=== PATIENT | male | born 1965 | race Caucasian/White ===

== ENCOUNTER 2019-05-22 11:01 | Emergency (ER) | payer BC ==
[~2019-05-22] VITALS: Ht 180.3 cm; Wt 99.8 kg
[~2019-05-22 11:01] MED LIST: AMOXICILLIN500 MG PO; CLINDAMYCIN HC300 MG PO; VICODIN ES 7501 TAB PO
[2019-05-22 11:02] VITALS: BP 153/55
[2019-05-22 11:40] LABS: BILIRUBIN NEGATIVE (NEGATIVE); BLOOD 3+ (NEGATIVE); CLARITY SL CLOUDY (CLEAR); COLOR YELLOW (YELLOW); GLUCOSE NEGATIVE (NEGATIVE); KETONE NEGATIVE (NEGATIVE); LEUKO ESTERASE NEGATIVE (NEGATIVE); NITRITE NEGATIVE (NEGATIVE); PH 5.5 (5.0-9.0); SPECIFIC GRAVITY 1.025 (1.005-1.030); UROBILINOGEN 0.2 E.U./dl (0.2-1.0)
[2019-05-22 11:48] LABS: RBC TNTC rbc/hpf (0-2)
[2019-05-22 11:54] LABS: BASO % 0.1 % (0.0-1.0); EOS # 0.1 10*3/uL (0.0-0.4); EOS % 0.5 % (1.0-4.0); HEMATOCRIT 41.2 % (42.0-52.0); HEMOGLOBIN 13.6 g/dl (14.0-18.0); LYMPH # 2.3 10*3/uL (1.3-4.4); LYMPH % 22.3 % (27.0-41.0); MEAN CELL VOLUME 93.8 fl (80.0-94.0); MEAN PLATELET VOLUME 9.8 fl (9.6-12.3); MONO # 0.8 10*3/uL (0.1-1.0); MONO % 7.4 % (3.0-9.0); NEUT # 7.2 10*3/uL (2.3-7.9); NEUT % 69.4 % (47.0-73.0); PLATELET COUNT AUTOMATED 218 10*3/uL (130-400); RED BLOOD COUNT 4.39 10*6/uL (4.50-5.90); RED CELL DISTRI WIDTH 12.8 % (0-14.5); WHITE BLOOD COUNT 10.3 10*3/uL (4.8-10.8)
[2019-05-22 12:05] LABS: ACT PARTIAL THROMBO TIME 28.8 SECONDS (20.0-32.1); INTERNATIONAL NORM RATIO 0.9 (2.0-3.5)
[2019-05-22 12:13] LABS: ALKALINE PHOSPHATASE 58 U/L (45-117); BUN 15 mg/dl (7-24); CHLORIDE 108 mmol/L (98-107); CREATININE 1.36 mg/dL (0.70-1.30); LIPASE 81 U/L (73-393); SGOT/AST 27 IU/L (3-35); SGPT/ALT 25 U/L (12-78); SODIUM 139 mmol/L (136-145); TOTAL PROTEIN 8.2 gm/dL (6.4-8.2)
[2019-05-22 12:16] LABS: TROPONIN I < 0.015 ng/ml (<0.045)
[2019-05-22] MEDS ORDERED: SEPTDS PO (12:43)
[2019-05-22] MEDS ORDERED: ZOFRAN4 MG PO (12:43)
[2019-05-22] MEDS ORDERED: FLOMAX0.4 MG PO (12:43)
[2019-05-22] MEDS ORDERED: IBU800 MG PO (12:55)
== END 2019-05-22 13:00 | disposition home or self-care (01) ==
LOC: ED 11:01
PROVIDERS: Nurse Practitioner Family
DX: N13.2 Hydronephrosis with renal and ureteral calculous obstruction (principal); G89.29 Other chronic pain; F17.200 Nicotine dependence, unspecified, uncomplicated

== ENCOUNTER → 2019-05-28 | Outpatient (CLI) | payer BC ==
[~2019-05-28] MED LIST changes: +FLOMAX0.4 MG PO; +IBU800 MG PO; +SEPTDS PO; +ZOFRAN4 MG PO
== END | disposition home or self-care (01) ==
LOC: CT 14:41
DX: N20.0 Calculus of kidney (principal)

== ENCOUNTER 2020-11-14 16:01 | Emergency (ER) | payer BC ==
[~2020-11-14] VITALS: Wt 90.7 kg
[2020-11-14 16:09] VITALS: BP 155/89
[2020-11-14 16:50] LABS: BILIRUBIN 1+ (Negative); BLOOD Negative (Negative); CLARITY Clear (Clear); GLUCOSE Negative (Negative); KETONE Negative (Negative); LEUKO ESTERASE 1+ (Negative); NITRITE Positive (Negative); PH 6.5 (4.5-8.0)
[2020-11-14 17:04] LABS: BACTERIA 1+; EPITHELIAL CELLS 0-2; MUCOUS 1+; WBC 0-2 wbc/hpf (0-5)
[2020-11-14 17:05] LABS: COLOR Orange (Yellow)
== END 2020-11-14 17:49 | disposition home or self-care (01) ==
LOC: ED 16:01
PROVIDERS: Student in an Organized Health Care Education/Training Program
DX: R10.9 Unspecified abdominal pain (principal); R11.0 Nausea; R20.0 Anesthesia of skin; R20.2 Paresthesia of skin; Z87.442 Personal history of urinary calculi; Z79.899 Other long term (current) drug therapy; Z79.2 Long term (current) use of antibiotics; Z98.890 Other specified postprocedural states

== ENCOUNTER → 2021-05-26 | Outpatient (CLI) | payer BC | END | disposition home or self-care (01) | LOC: COVID19 16:33 | PROVIDERS: ATTEND Internal Medicine | DX: Z11.52 Encounter for screening for COVID-19 (principal) ==

== ENCOUNTER 2022-02-19 19:28 | Emergency (ER) | payer BC ==
[~2022-02-19] VITALS: Ht 175.2 cm; Wt 90.7 kg
[2022-02-19 19:36] VITALS: BP 138/67
[2022-02-19 20:18] LABS: BASO % 0.2 % (0.0-1.0); EOS # 0.1 10*3/uL (0.0-0.4); EOS % 0.8 % (1.0-4.0); HEMATOCRIT 41.3 % (42.0-52.0); LYMPH # 2.3 10*3/uL (1.3-4.4); LYMPH % 17.4 % (27.0-41.0); MEAN CELL VOLUME 92.8 fl (80.0-94.0); MEAN CORPUSCULAR HGB 29.9 pg (27.0-31.0); MEAN CORPUSCULAR HGB CONC 32.2 g/dl (33.0-37.0); MEAN PLATELET VOLUME 9.7 fl (9.6-12.3); MONO # 0.9 10*3/uL (0.1-1.0); MONO % 6.7 % (3.0-9.0); NEUT # 9.8 10*3/uL (2.3-7.9); NEUT % 74.6 % (47.0-73.0); PLATELET COUNT AUTOMATED 230 10*3/uL (130-400); RED BLOOD COUNT 4.45 10*6/uL (4.50-5.90); RED CELL DISTRI WIDTH 13.7 % (0-14.5); WHITE BLOOD COUNT 13.2 10*3/uL (4.8-10.8)
[2022-02-19 20:33] LABS: ALKALINE PHOSPHATASE 76 U/L (45-117); BUN 19 mg/dl (7-24); CHLORIDE 111 mmol/L (98-107); CREATININE 1.05 mg/dL (0.70-1.30); LIPASE 145 U/L (73-393); POTASSIUM 3.9 mmol/L (3.5-5.1); SGOT/AST 26 IU/L (3-35); SGPT/ALT 30 U/L (12-78); SODIUM 143 mmol/L (136-145); TOTAL PROTEIN 7.7 gm/dL (6.4-8.2)
[2022-02-20] MEDS ORDERED: METRONIDAZOLE500 M1 PO (00:35)
[2022-02-20] MEDS ORDERED: CIPRO500 MG PO (00:35)
== END 2022-02-20 00:33 | disposition home or self-care (01) ==
LOC: ED 19:28
PROVIDERS: Internal Medicine
DX: D72.829 Elevated white blood cell count, unspecified (principal); K52.9 Noninfective gastroenteritis and colitis, unspecified